=== PATIENT | female | born 1955 | race Hispanic/Latino ===

== ENCOUNTER 2022-07-15 20:26 | Observation (INO) | payer OTHER ==
[~2022-07-15] VITALS: Ht 152.4 cm; Wt 71.6 kg
[2022-07-15 20:53] LABS: BASOPHILS % (AUTO) 0.4 % (0.0-5.0); EOSINOPHILS % (AUTO) 1.3 % (0.0-8.0); HEMATOCRIT 39.5 % (36-48); LYMPHOCYTES % (AUTO) 44.9 % (21.0-51.0); MEAN CORPUSCULAR HEMOGLOBIN 28.3 pg (27.0-33.0); MEAN CORPUSCULAR HGB CONC 32.9 g/dL (32.0-36.0); MEAN CORPUSCULAR VOLUME 85.9 fL (79-99); MONOCYTES % (AUTO) 8.9 % (3.0-13.0); NEUTROPHILS % (AUTO) 44.2 % (40.0-77.0); PLATELET COUNT (AUTO) 222 K/uL (130-400); RED CELL DISTRIBUTION WIDTH 13.7 % (11.0-15.5); WHITE BLOOD COUNT (AUTO) 7.7 K/uL (4.8-10.8)
[2022-07-15] MEDS ORDERED: ASPIRIN 325MG TAB PO ONE (21:00)
[2022-07-15 21:08] LABS: ALBUMIN 3.6 g/dL (3.5-5.0); CREATININE 1.5 mg/dL (0.5-1.5); POTASSIUM 3.8 mmol/L (3.5-5.1); TOTAL PROTEIN, SERUM 7.4 g/dL (6.0-8.3)
[2022-07-15 21:20] LABS: B-TYPE NATRIURETIC PEPTIDE 8 pg/mL (0-100)
[2022-07-15] MEDS ORDERED: OMEP40CA21 PO (23:02)
[2022-07-15] MEDS ORDERED: NITR.4 SL (23:02)
[2022-07-15 23:10] LABS: APPEARANCE,URINE CLEAR (CLEAR); BILIRUBIN,URINE NEGATIVE (NEGATIVE); COLOR,URINE LIGHT-YELLOW (YELLOW); GLUCOSE, URINE (UA) >=1000 mg/dL (NEGATIVE); KETONES,URINE NEGATIVE (NEGATIVE); LEUKOCYTE ESTERASE ,URINE NEGATIVE Leu/uL (NEGATIVE); NITRATE,URINE NEGATIVE (NEGATIVE); OCCULT BLOOD,URINE NEGATIVE (NEGATIVE); PROTEIN,URINE NEGATIVE (NEGATIVE); UROBILINOGEN,URINE 0.2 mg/dL (0.2-1.0)
[2022-07-15 23:15] LABS: RBC,URINE 0-1 /HPF (0-1)
[2022-07-15 23:16] LABS: BACTERIA,URINE Rare /HPF (None Seen); SQUAMOUS EPITHELIAL CELL,UR Rare /HPF (0-2); WBC,URINE 0-1 /HPF (0-1)
[2022-07-16] MEDS ORDERED: LABETALOL 20MG SYG IV PRN (01:00)
[2022-07-16] MEDS ORDERED: CLONIDINE HCL 0.1 MG TABLET PO PRN (01:00)
[2022-07-16] MEDS ORDERED: ACETAMINOPHEN 650 MG SUPPOSITORY RC PRN (01:00)
[2022-07-16] MEDS ORDERED: ONDANSETRON 4MG INJ IVP PRN (01:00)
[2022-07-16] MEDS ORDERED: HYDRALAZINE 20MG/ML VIAL IV PRN (01:00)
[2022-07-16] MEDS: ACETAMINOPHEN 325 MG TAB PO PRN ×3 (03:10→16:01)
[2022-07-16] MEDS ORDERED: IOHEXOL 350 MG/ML 100ML INFUS..BTL IV ONE (04:31)
[2022-07-16 05:45] VITALS: BP 134/63
[2022-07-16] MEDS ORDERED: LEVO50TA11 PO (06:18)
[2022-07-16] MEDS ORDERED: SITA1TAB6 PO (06:18)
[2022-07-16] MEDS ORDERED: LATA2.5D14 OU (06:18)
[2022-07-16] MEDS ORDERED: FENO54TA6 PO (06:18)
[2022-07-16] MEDS ORDERED: CLAR-44 PO (06:18)
[2022-07-16] MEDS ORDERED: LOSA25TA41 PO (06:18)
[2022-07-16] MEDS ORDERED: OMEP20CA12 PO (06:18)
[2022-07-16] MEDS ORDERED: ROSU10TA28 PO (06:18)
[2022-07-16] MEDS ORDERED: ALEN70TA80 PO (06:18)
[2022-07-16] MEDS ORDERED: METR-172 PO (06:18)
[2022-07-16] MEDS: INSULIN HUMULIN R 100 UNIT/ML 3ML SQ SCH ×4 (06:41→21:12)
[2022-07-16 07:15] LABS: HEMATOCRIT 37.8 % (36-48); MEAN CORPUSCULAR HEMOGLOBIN 28.9 pg (27.0-33.0); MEAN CORPUSCULAR HGB CONC 33.3 g/dL (32.0-36.0); MEAN CORPUSCULAR VOLUME 86.7 fL (79-99); RED BLOOD CELL COUNT(AUTO) 4.36 MIL/uL (4.00-5.50); RED CELL DISTRIBUTION WIDTH 13.6 % (11.0-15.5); WHITE BLOOD COUNT (AUTO) 5.8 K/uL (4.8-10.8)
[2022-07-16 07:27] LABS: HEMOGLOBIN A1C 12.4 % (4.0-6.0)
[2022-07-16 07:42] LABS: CREATININE 1.1 mg/dL (0.5-1.5); POTASSIUM 3.8 mmol/L (3.5-5.1); THYROID STIMULATING HORMONE 0.86 uIU/mL (0.36-3.74)
[2022-07-16] MEDS: ASPIRIN 81MG CHEW TAB PO SCH (08:08)
[2022-07-16] MEDS: ENOXAPARIN SODIUM 30 MG/0.3 ML SQ SCH (08:08)
[2022-07-16 08:17] VITALS: BP 119/60
[2022-07-16] MEDS ORDERED: FAMOTIDINE 20MG TAB PO SCH (09:00)
[2022-07-16] MEDS ORDERED: KCL 20 MEQ ERTAB PO PRN (09:30)
[2022-07-16] MEDS ORDERED: POTASSIUM CHLORIDE 10% ELIXIR 20 MEQ/15 ML UDCUP PO PRN (09:30)
[2022-07-16] MEDS ORDERED: POTASSIUM CHLORIDE 20MEQ/100ML 100 ML IV PRN ×2 (09:30)
[2022-07-16] MEDS ORDERED: GLUCAGON 1MG KIT 1 MG ML IM PRN (09:30)
[2022-07-16] MEDS ORDERED: DEXTROSE 50%-WATER 50 ML DISP.SYRIN IV PRN (09:30)
[2022-07-16] MEDS: INSULIN GLARGINE 100 UNITS/ML 10 ML VIAL SQ SCH ×2 (10:16→21:14)
[2022-07-16] MEDS ORDERED: INSULIN HUMULIN R 100 UNIT/ML 3ML SQ SCH (11:30)
[2022-07-16] MEDS ORDERED: NITROGLYCERIN 1GM OINT 1 INCH/1GM TD SCH (12:00)
[2022-07-16 12:27] VITALS: BP 132/70
[2022-07-16] MEDS: PANTOPRAZOLE 40 MG/VIAL IVP SCH ×2 (14:13→21:04)
[2022-07-16] MEDS: SUCRALFATE 1 GM TABLET PO SCH ×2 (14:13→21:05)
[2022-07-16 15:54] VITALS: BP 115/65
[2022-07-16 20:00] VITALS: BP 101/52
[2022-07-16] MEDS: LOSARTAN 25 MG TABLET PO SCH (21:04)
[2022-07-16] MEDS: SIMVASTATIN 20 MG TABLET PO SCH (21:04)
[2022-07-16] MEDS: LATANOPROST 2.5 ML DROPS OU SCH (21:04)
[2022-07-16] MEDS: JANUMET PO SCH (21:20)
[2022-07-17] VITALS (7 sets, daily range): BP systolic 107–138; BP diastolic 47–71
[2022-07-17 04:05] LABS: MAGNESIUM 1.4 mg/dL (1.80-2.40); PHOSPHORUS 3.8 mg/dL (2.5-4.9)
[2022-07-17] MEDS: LEVOTHYROXINE 50 MCG TABLET PO SCH (06:30)
[2022-07-17] MEDS: INSULIN GLARGINE 100 UNITS/ML 10 ML VIAL SQ SCH ×2 (06:31→23:05)
[2022-07-17] MEDS: INSULIN HUMULIN R 100 UNIT/ML 3ML SQ SCH ×4 (06:32→23:04)
[2022-07-17] MEDS ORDERED: REGADENOSON 0.4 MG/5 ML PF SYG IVP SCH (07:30)
[2022-07-17] MEDS: ASPIRIN 81MG CHEW TAB PO SCH (08:29)
[2022-07-17] MEDS: SUCRALFATE 1 GM TABLET PO SCH ×2 (08:29→21:03)
[2022-07-17] MEDS: PANTOPRAZOLE 40 MG/VIAL IVP SCH ×2 (08:29→21:02)
[2022-07-17] MEDS: JANUMET PO SCH ×2 (08:30→21:08)
[2022-07-17] MEDS: ENOXAPARIN SODIUM 30 MG/0.3 ML SQ SCH (08:32)
[2022-07-17] MEDS: FENOFIBRATE 54 MG PO SCH (08:33)
[2022-07-17] MEDS: MAGNESIUM 2GM PREMIX 50ML 50 ML IV PRN (11:54)
[2022-07-17 12:39] LABS: INFLUENZA TYPE A NEGATIVE FOR TYPE A (NEG); INFLUENZA TYPE B NEGATIVE FOR TYPE B (NEG)
[2022-07-17] MEDS: SIMVASTATIN 20 MG TABLET PO SCH (21:03)
[2022-07-17] MEDS: LOSARTAN 25 MG TABLET PO SCH (21:03)
[2022-07-17] MEDS: LATANOPROST 2.5 ML DROPS OU SCH (21:06)
[2022-07-18 04:14] LABS: BASOPHILS % (AUTO) 0.4 % (0.0-5.0); EOSINOPHILS % (AUTO) 1.3 % (0.0-8.0); HEMATOCRIT 39.2 % (36-48); LYMPHOCYTES % (AUTO) 27.4 % (21.0-51.0); MEAN CORPUSCULAR HEMOGLOBIN 28.6 pg (27.0-33.0); MEAN CORPUSCULAR HGB CONC 32.9 g/dL (32.0-36.0); MEAN CORPUSCULAR VOLUME 86.9 fL (79-99); MONOCYTES % (AUTO) 7.5 % (3.0-13.0); NEUTROPHILS % (AUTO) 63.1 % (40.0-77.0); PLATELET COUNT (AUTO) 201 K/uL (130-400); RED BLOOD CELL COUNT(AUTO) 4.51 MIL/uL (4.00-5.50); RED CELL DISTRIBUTION WIDTH 14.1 % (11.0-15.5); WHITE BLOOD COUNT (AUTO) 10.1 K/uL (4.8-10.8)
[2022-07-18 04:18] VITALS: BP 106/46
[2022-07-18 04:23] LABS: MAGNESIUM 1.5 mg/dL (1.80-2.40); POTASSIUM 3.9 mmol/L (3.5-5.1)
[2022-07-18] MEDS: LEVOTHYROXINE 50 MCG TABLET PO SCH (05:00)
[2022-07-18] MEDS: MAGNESIUM 2GM PREMIX 50ML 50 ML IV PRN (05:00)
[2022-07-18] MEDS: INSULIN HUMULIN R 100 UNIT/ML 3ML SQ SCH ×2 (05:34→11:36)
[2022-07-18] MEDS: INSULIN GLARGINE 100 UNITS/ML 10 ML VIAL SQ SCH (06:16)
[2022-07-18 08:00] VITALS: BP 98/52
[2022-07-18] MEDS: PANTOPRAZOLE 40 MG/VIAL IVP SCH (08:32)
[2022-07-18] MEDS: SUCRALFATE 1 GM TABLET PO SCH (08:33)
[2022-07-18] MEDS: ASPIRIN 81MG CHEW TAB PO SCH (08:33)
[2022-07-18] MEDS: ENOXAPARIN SODIUM 30 MG/0.3 ML SQ SCH (08:34)
[2022-07-18] MEDS: FENOFIBRATE 54 MG PO SCH (08:35)
[2022-07-18] MEDS: JANUMET PO SCH (08:37)
[2022-07-18] MEDS ORDERED: ASPI-1005 PO (08:58)
[2022-07-18] MEDS ORDERED: INSU100I45 SQ (08:58)
[2022-07-18] MEDS ORDERED: SUCR1TAB PO (08:58)
[2022-07-18] MEDS ORDERED: METOPROLOL SUCCINATE 25 MG TAB.SR.24H PO SCH (09:00)
[2022-07-18 12:05] VITALS: BP 115/63
== END 2022-07-18 11:30 | disposition home or self-care (01) ==
LOC: EDH 20:26 → EDHIP 07-16 00:58 → 2DH 07-16 05:20
PROVIDERS: ADMIT Internal Medicine; ATTEND Internal Medicine
DX: R07.89 Other chest pain (principal); Z20.822 Contact with and (suspected) exposure to COVID-19; E11.65 Type 2 diabetes mellitus with hyperglycemia; G62.9 Polyneuropathy, unspecified; I10 Essential (primary) hypertension; E78.00 Pure hypercholesterolemia, unspecified; E87.1 Hypo-osmolality and hyponatremia; K21.9 Gastro-esophageal reflux disease without esophagitis; K29.70 Gastritis, unspecified, without bleeding; E03.9 Hypothyroidism, unspecified; E66.9 Obesity, unspecified; M94.0 Chondrocostal junction syndrome [Tietze]; Z59.7 Insufficient social insurance and welfare support; Z68.30 Body mass index [BMI] 30.0-30.9, adult; Z90.710 Acquired absence of both cervix and uterus; Z77.22 Contact with and (suspected) exposure to environmental tobacco smoke (acute) (chronic); Z79.899 Other long term (current) drug therapy; Z98.890 Other specified postprocedural states
CPT/HCPCS: 99285; 82550 ×3; 84484 ×4; 80053; 83880 ×2; 85025 ×2; 85378; 81001; 36415 ×4; 71045; 93005; 96376 ×3; 96372 ×3; 96375 ×2; 83036; 82150; 84443; 83874 ×2; 80061; 80048 ×2; 85027; 82948 ×10; 71270; 93306; 93356; 93970; 96365; 96366 ×2; 83735 ×3; 84100; 87804 ×2; 87635; 93017; 78452; J1815 ×9; G0378 ×50; J1650 ×3; C9113 ×6; Q9967; J3475 ×2; J2405; J2785; A9500 ×2; 96374

== ENCOUNTER → 2022-07-31 | Outpatient (CLI) | payer OTHER, MEDICARE ==
[~2022-07-31] MED LIST: ALEN70TA80 PO; ASPI-1005 PO; CLAR-44 PO; FENO54TA6 PO; INSU100I45 SQ; LATA2.5D14 OU; LEVO50TA11 PO; LOSA25TA41 PO; METR-172 PO; OMEP20CA12 PO; ROSU10TA28 PO; SITA1TAB6 PO; SUCR1TAB PO
== END | disposition home or self-care (01) ==
LOC: RAH 14:37
PROVIDERS: ATTEND Internal Medicine
DX: Z12.31 Encounter for screening mammogram for malignant neoplasm of breast (principal)
CPT/HCPCS: 77067

== ENCOUNTER → 2022-10-24 | Outpatient (CLI) | payer OTHER, MEDICARE | END | disposition home or self-care (01) | LOC: RAH 14:26 | PROVIDERS: ATTEND Internal Medicine | DX: R55 Syncope and collapse (principal) | CPT/HCPCS: 93880 ==

== ENCOUNTER 2023-09-24 10:41 | Emergency (ER) | payer OTHER, MEDICARE ==
[~2023-09-24] VITALS: Ht 149.9 cm; Wt 64.0 kg
[~2023-09-24 10:41] MED LIST changes: -ROSU10TA28 PO; +ROSU10TA72 PO
[2023-09-24 11:05] LABS: CREATININE 0.9 mg/dL (0.5-1.0); POTASSIUM 3.7 mmol/L (3.5-5.1)
[2023-09-24 11:13] LABS: ALBUMIN 3.8 g/dL (3.5-5.0); BILIRUBIN,TOTAL 0.5 mg/dL (0.2-1.0); MAGNESIUM 1.2 mg/dL (1.80-2.40); TOTAL PROTEIN, SERUM 7.6 g/dL (6.0-8.3)
[2023-09-24 11:32] LABS: BASOPHILS # (AUTO) 0.06 K/uL (0.00-0.20); BASOPHILS % (AUTO) 0.7 % (0.0-5.0); EOSINOPHILS # (AUTO) 0.16 K/uL (0.00-0.70); EOSINOPHILS % (AUTO) 1.8 % (0.0-8.0); HEMATOCRIT 39.1 % (36-48); IMMATURE GRANULOCYTE ABSOLUTE 0.03 K/uL (0-1); LYMPHOCYTES # (AUTO) 3.4 K/uL (1.0-4.8); LYMPHOCYTES % (AUTO) 39.3 % (21.0-51.0); MEAN CORPUSCULAR HEMOGLOBIN 29.2 pg (27.0-33.0); MEAN CORPUSCULAR VOLUME 88.5 fL (79-99); MONOCYTES # (AUTO) 0.5 K/uL (0.1-1.0); MONOCYTES % (AUTO) 6.2 % (3.0-13.0); NEUTROPHILS # (AUTO) 4.5 K/uL (1.8-7.7); NEUTROPHILS % (AUTO) 51.7 % (40.0-77.0); PLATELET COUNT (AUTO) 237 K/uL (130-400); RED BLOOD CELL COUNT(AUTO) 4.42 MIL/uL (4.00-5.50); WHITE BLOOD COUNT (AUTO) 8.8 K/uL (4.8-10.8)
[2023-09-24] MEDS: ASPIRIN 325MG TAB PO ONE (12:02)
[2023-09-24] MEDS: NITROGLYCERIN 1GM OINT 1 INCH/1GM TD ONE (12:02)
[2023-09-24] MEDS: MAGNESIUM 2GM PREMIX 50ML 50 ML IV ONE (12:03)
[2023-09-24 15:06] VITALS: BP 114/60; PULSE 69; RESP 12; O2SAT 99
== END 2023-09-24 15:11 | disposition home or self-care (01) ==
LOC: EDH 10:41
DX: R07.89 Other chest pain (principal); R09.89 Other specified symptoms and signs involving the circulatory and respiratory systems; I10 Essential (primary) hypertension; E11.9 Type 2 diabetes mellitus without complications; E78.00 Pure hypercholesterolemia, unspecified; K21.9 Gastro-esophageal reflux disease without esophagitis; M19.90 Unspecified osteoarthritis, unspecified site; Z79.82 Long term (current) use of aspirin; Z79.84 Long term (current) use of oral hypoglycemic drugs; Z88.0 Allergy status to penicillin; Z88.5 Allergy status to narcotic agent; Z88.8 Allergy status to other drugs, medicaments and biological substances
CPT/HCPCS: 99285; 96365; 71045; 96366; 83735; 84484 ×2; 80053; 85025; 36415; 93005; J3475

== ENCOUNTER 2023-12-09 20:34 | Emergency (ER) | payer OTHER, MEDICARE ==
[~2023-12-09] VITALS: Ht 152.4 cm; Wt 66.2 kg
[2023-12-09 21:01] LABS: BASOPHILS # (AUTO) 0.03 K/uL (0.00-0.20); BASOPHILS % (AUTO) 0.4 % (0.0-5.0); EOSINOPHILS # (AUTO) 0.14 K/uL (0.00-0.70); EOSINOPHILS % (AUTO) 1.7 % (0.0-8.0); HEMATOCRIT 36.1 % (36-48); IMMATURE GRANULOCYTE ABSOLUTE 0.02 K/uL (0-1); MEAN CORPUSCULAR HEMOGLOBIN 29.4 pg (27.0-33.0); MEAN CORPUSCULAR VOLUME 89.1 fL (79-99); MONOCYTES # (AUTO) 0.5 K/uL (0.1-1.0); MONOCYTES % (AUTO) 6.2 % (3.0-13.0); NEUTROPHILS # (AUTO) 3.6 K/uL (1.8-7.7); NEUTROPHILS % (AUTO) 43.5 % (40.0-77.0); PLATELET COUNT (AUTO) 253 K/uL (130-400); RED BLOOD CELL COUNT(AUTO) 4.05 MIL/uL (4.00-5.50); RED CELL DISTRIBUTION WIDTH 13.7 % (11.0-15.5); WHITE BLOOD COUNT (AUTO) 8.3 K/uL (4.8-10.8)
[2023-12-09 21:11] LABS: CREATININE 1.2 mg/dL (0.5-1.0); POTASSIUM 3.7 mmol/L (3.5-5.1)
[2023-12-09 21:16] LABS: ALBUMIN 3.7 g/dL (3.5-5.0); BILIRUBIN,TOTAL 0.4 mg/dL (0.2-1.0); TOTAL PROTEIN, SERUM 7.2 g/dL (6.0-8.3)
[2023-12-09 22:25] LABS: APPEARANCE,URINE CLEAR (CLEAR); BILIRUBIN,URINE NEGATIVE (NEGATIVE); COLOR,URINE LIGHT-YELLOW (YELLOW); GLUCOSE, URINE (UA) NEGATIVE (NEGATIVE); KETONES,URINE NEGATIVE (NEGATIVE); LEUKOCYTE ESTERASE ,URINE 75 Leu/uL (NEGATIVE); NITRATE,URINE NEGATIVE (NEGATIVE); OCCULT BLOOD,URINE NEGATIVE (NEGATIVE); PROTEIN,URINE NEGATIVE (NEGATIVE); UROBILINOGEN,URINE 0.2 mg/dL (0.2-1.0)
[2023-12-09 22:27] LABS: ADD UA MICROSCOPIC YES
[2023-12-09 22:30] LABS: RBC,URINE 0-1 /HPF (0-1); SQUAMOUS EPITHELIAL CELL,UR RARE /HPF (0-2)
[2023-12-09] MEDS: atorVAStatin 40 MG TABLET PO ONE (22:58)
[2023-12-09] MEDS: ASPIRIN 81MG CHEW TAB PO ONE (22:58)
[2023-12-10 00:37] VITALS: BP 127/59; PULSE 71; RESP 20; TEMP 98.1; O2SAT 99
== END 2023-12-10 00:39 | disposition home or self-care (01) ==
LOC: EDH 20:34
DX: R07.89 Other chest pain (principal); E11.9 Type 2 diabetes mellitus without complications; E66.9 Obesity, unspecified; E78.00 Pure hypercholesterolemia, unspecified; I10 Essential (primary) hypertension; K21.9 Gastro-esophageal reflux disease without esophagitis; M19.90 Unspecified osteoarthritis, unspecified site; Z79.82 Long term (current) use of aspirin; Z79.84 Long term (current) use of oral hypoglycemic drugs; Z79.890 Hormone replacement therapy; Z88.0 Allergy status to penicillin; Z88.5 Allergy status to narcotic agent; Z98.51 Tubal ligation status
CPT/HCPCS: 36415; 71045; 80053; 81001; 83735; 83880; 84484; 85025; 87086; 93005

== ENCOUNTER 2023-12-29 15:17 | Emergency (ER) | payer OTHER, MEDICARE ==
[~2023-12-29] VITALS: Ht 149.9 cm; Wt 65.3 kg
[2023-12-29] MEDS: ASPIRIN 325MG TAB PO ONE (15:39)
[2023-12-29] MEDS: NITROGLYCERIN 0.4 MG SL TAB SL PRN (15:39)
[2023-12-29 15:44] LABS: BASOPHILS # (AUTO) 0.05 K/uL (0.00-0.20); BASOPHILS % (AUTO) 0.4 % (0.0-5.0); EOSINOPHILS # (AUTO) 0.14 K/uL (0.00-0.70); EOSINOPHILS % (AUTO) 1.2 % (0.0-8.0); HEMATOCRIT 37.3 % (36-48); IMMATURE GRANULOCYTE ABSOLUTE 0.03 K/uL (0-1); LYMPHOCYTES # (AUTO) 4.8 K/uL (1.0-4.8); LYMPHOCYTES % (AUTO) 41.9 % (21.0-51.0); MEAN CORPUSCULAR HGB CONC 33.2 g/dL (32.0-36.0); MEAN CORPUSCULAR VOLUME 90.1 fL (79-99); MONOCYTES # (AUTO) 0.7 K/uL (0.1-1.0); MONOCYTES % (AUTO) 6.1 % (3.0-13.0); NEUTROPHILS # (AUTO) 5.8 K/uL (1.8-7.7); NEUTROPHILS % (AUTO) 50.1 % (40.0-77.0); PLATELET COUNT (AUTO) 277 K/uL (130-400); RED BLOOD CELL COUNT(AUTO) 4.14 MIL/uL (4.00-5.50); RED CELL DISTRIBUTION WIDTH 13.6 % (11.0-15.5); WHITE BLOOD COUNT (AUTO) 11.5 K/uL (4.8-10.8)
[2023-12-29 15:47] LABS: APPEARANCE,URINE CLEAR (CLEAR); BILIRUBIN,URINE NEGATIVE (NEGATIVE); COLOR,URINE YELLOW (YELLOW); GLUCOSE, URINE (UA) NEGATIVE (NEGATIVE); KETONES,URINE 5 mg/dL (NEGATIVE); LEUKOCYTE ESTERASE ,URINE 75 Leu/uL (NEGATIVE); NITRATE,URINE NEGATIVE (NEGATIVE); OCCULT BLOOD,URINE NEGATIVE (NEGATIVE); PROTEIN,URINE 20 mg/dL (NEGATIVE)
[2023-12-29 15:49] LABS: ADD UA MICROSCOPIC YES
[2023-12-29 15:51] LABS: BACTERIA,URINE RARE /HPF (None Seen); MUCUS,URINE RARE LPF (None Seen); NON-SQUAMOUS EPITHELIAL CELL <1 /HPF (0-2); OTHER CASTS, URINE 1 /LPF (None Seen); RBC,URINE 0-1 /HPF (0-1); SQUAMOUS EPITHELIAL CELL,UR RARE /HPF (0-2)
[2023-12-29 15:51] LABS: CREATININE 1.2 mg/dL (0.5-1.0)
[2023-12-29] MEDS: acetaMINOPHEN 500 MG TABLET PO ONE (16:02)
[2023-12-29 16:07] LABS: B-TYPE NATRIURETIC PEPTIDE 19 pg/mL (0-100)
[2023-12-29] MEDS: ondanSETRON 4MG INJ IVP ONE (16:39)
[2023-12-29] MEDS: Solu-medROL 125MG VIAL IVP ONE (17:02)
[2023-12-29] MEDS: ketOROlac 30MG VIAL (30MG/ML) IVP ONE (17:02)
[2023-12-29] MEDS: MAGNESIUM 2GM PREMIX 50ML 50 ML IV ONE (18:22)
[2023-12-29 18:36] VITALS: BP 117/62; PULSE 74; RESP 20; TEMP 98.3; O2SAT 99
[2023-12-29] MEDS ORDERED: METH4TAB3 PO (18:45)
[2023-12-29] MEDS ORDERED: MAGN300C PO (18:45)
== END 2023-12-29 18:50 | disposition home or self-care (01) ==
LOC: EDH 15:17
DX: R07.89 Other chest pain (principal); E83.42 Hypomagnesemia; K29.00 Acute gastritis without bleeding; E11.9 Type 2 diabetes mellitus without complications; E78.00 Pure hypercholesterolemia, unspecified; I10 Essential (primary) hypertension; K21.9 Gastro-esophageal reflux disease without esophagitis; M19.90 Unspecified osteoarthritis, unspecified site; Z79.82 Long term (current) use of aspirin; Z79.84 Long term (current) use of oral hypoglycemic drugs; Z79.890 Hormone replacement therapy; Z88.0 Allergy status to penicillin; Z88.5 Allergy status to narcotic agent; Z98.51 Tubal ligation status
CPT/HCPCS: 99285; 96374; 96375; 71045; 82550; 83735; 84484 ×2; 80048; 83880; 85025; 87086; 81001; 36415; 93005; J3475; J2919; J2405; J1885

== ENCOUNTER 2024-01-15 14:02 | Emergency (ER) | payer OTHER, MEDICARE ==
[~2024-01-15] VITALS: Ht 149.9 cm; Wt 63.5 kg
[~2024-01-15 14:02] MED LIST changes: +MAGN300C PO; +METH4TAB3 PO
[2024-01-15 14:33] LABS: BASOPHILS # (AUTO) 0.04 K/uL (0.00-0.20); BASOPHILS % (AUTO) 0.4 % (0.0-5.0); EOSINOPHILS # (AUTO) 0.14 K/uL (0.00-0.70); EOSINOPHILS % (AUTO) 1.5 % (0.0-8.0); HEMATOCRIT 36.6 % (36-48); IMMATURE GRANULOCYTE ABSOLUTE 0.03 K/uL (0-1); LYMPHOCYTES # (AUTO) 3.7 K/uL (1.0-4.8); MEAN CORPUSCULAR HEMOGLOBIN 30.4 pg (27.0-33.0); MEAN CORPUSCULAR HGB CONC 33.3 g/dL (32.0-36.0); MEAN CORPUSCULAR VOLUME 91.3 fL (79-99); MONOCYTES # (AUTO) 0.6 K/uL (0.1-1.0); MONOCYTES % (AUTO) 7.1 % (3.0-13.0); NEUTROPHILS # (AUTO) 4.5 K/uL (1.8-7.7); NEUTROPHILS % (AUTO) 49.7 % (40.0-77.0); PLATELET COUNT (AUTO) 203 K/uL (130-400); RED BLOOD CELL COUNT(AUTO) 4.01 MIL/uL (4.00-5.50); WHITE BLOOD COUNT (AUTO) 9.1 K/uL (4.8-10.8)
[2024-01-15 14:39] LABS: CREATININE 1.3 mg/dL (0.5-1.0); POTASSIUM 3.8 mmol/L (3.5-5.1)
[2024-01-15 14:53] LABS: B-TYPE NATRIURETIC PEPTIDE 62 pg/mL (0-100)
[2024-01-15 16:04] LABS: APPEARANCE,URINE CLOUDY (CLEAR); BILIRUBIN,URINE NEGATIVE (NEGATIVE); COLOR,URINE LIGHT-YELLOW (YELLOW); GLUCOSE, URINE (UA) 50 mg/dL (NEGATIVE); KETONES,URINE NEGATIVE (NEGATIVE); LEUKOCYTE ESTERASE ,URINE 500 Leu/uL (NEGATIVE); NITRATE,URINE NEGATIVE (NEGATIVE); OCCULT BLOOD,URINE NEGATIVE (NEGATIVE); PH,URINE 7.5 (5.0-8.0); PROTEIN,URINE NEGATIVE (NEGATIVE); UROBILINOGEN,URINE 0.2 mg/dL (0.2-1.0)
[2024-01-15 16:11] LABS: ADD UA MICROSCOPIC YES
[2024-01-15 16:13] LABS: BACTERIA,URINE RARE /HPF (None Seen); MUCUS,URINE RARE LPF (None Seen); NON-SQUAMOUS EPITHELIAL CELL 2 /HPF (0-2); SQUAMOUS EPITHELIAL CELL,UR MANY /HPF (0-2)
[2024-01-15 18:19] VITALS: BP 129/57; PULSE 77; RESP 25; TEMP 98.2; O2SAT 99
[2024-01-15] MEDS: dexaMETHasone SOD PHOSPHATE 4 MG/ML 1ML VIAL IM ONE (19:08)
[2024-01-15] MEDS: ketOROlac 60 MG VIAL (30MG/ML) IM ONE (19:09)
== END 2024-01-15 19:20 | disposition home or self-care (01) ==
LOC: EDH 14:02
DX: R07.89 Other chest pain (principal); E86.0 Dehydration; E11.9 Type 2 diabetes mellitus without complications; E78.00 Pure hypercholesterolemia, unspecified; K21.9 Gastro-esophageal reflux disease without esophagitis; Z88.0 Allergy status to penicillin; Z88.5 Allergy status to narcotic agent; Z88.8 Allergy status to other drugs, medicaments and biological substances; Z79.84 Long term (current) use of oral hypoglycemic drugs; Z79.82 Long term (current) use of aspirin; Z79.4 Long term (current) use of insulin; Z90.49 Acquired absence of other specified parts of digestive tract; Z98.51 Tubal ligation status; Z98.890 Other specified postprocedural states
CPT/HCPCS: 99285; 71045; 82550; 84484 ×2; 80048; 83880; 85025; 87086; 81001; 36415; 96372 ×2; 93005; J1100; J1885

== ENCOUNTER → 2024-08-09 | Outpatient (CLI) | payer OTHER, MEDICARE ==
--- NOTE | 2024-08-10 09:02 | HMCIMG ---
Exam Type: MAMMO SCREENING BILATERAL Clinical Information: ROUTINE SCREENING Comparison: July 31, 2022 Technique: Mammogram with CAD was performed with CC and MLO projections. CAD shows no worrisome regions. FINDINGS: The breasts are heterogeneously dense, which may obscure small masses. No dominant mass or suspicious microcalcification identified. There is no nipple retraction or skin thickening. Benign-appearing calcifications are seen. CAD shows no worrisome regions. IMPRESSION: 1. No mammographic signs of malignancy. 2. Routine follow-up recommended. CATEGORY 2: BENIGN FINDINGS Note: A negative x-ray should not delay biopsy if a dominant or clinically suspicious mass is present, since 8-10% of cancers are not identified by mammography. Dense breasts may obscure an underlying neoplasm.
== END | disposition home or self-care (01) ==
LOC: RAH 13:21
PROVIDERS: ATTEND Internal Medicine
DX: Z12.31 Encounter for screening mammogram for malignant neoplasm of breast (principal); R92.333 Mammographic heterogeneous density, bilateral breasts; R92.1 Mammographic calcification found on diagnostic imaging of breast
CPT/HCPCS: 77067

== ENCOUNTER 2024-12-05 11:37 | Day surgery (SDC) | payer OTHER, MEDICARE ==
[2024-12-02 14:37] LABS: IMMATURE GRANULOCYTE ABSOLUTE 0.02 K/uL (0-1); NUCLEATED RED BLOOD CELLS 0.0 % (0.0-0.19); PLATELET COUNT (AUTO) 246 K/uL (130-400); RED BLOOD CELL COUNT(AUTO) 3.97 MIL/uL (4.00-5.50); RED CELL DISTRIBUTION WIDTH 14.0 % (11.0-15.5); WHITE BLOOD COUNT (AUTO) 7.8 K/uL (4.8-10.8)
[2024-12-02 14:48] LABS: INR 1.07 (0.85-1.15)
[2024-12-02 14:50] LABS: CREATININE 0.9 mg/dL (0.5-1.0); GLOMERULAR FILTR. RATE CALC 70.0 mL/min (>90); GLUCOSE,RANDOM 106.0 mg/dL (70-105); SODIUM SERUM 139.0 mmol/L (136-145); UREA NITROGEN, BLOOD 15.0 mg/dL (7-18)
[2024-12-02 15:15] VITALS: BP 124/64; PULSE 80; RESP 18; TEMP 97.5
--- NOTE | 2024-12-02 16:14 | HMCIMG ---
CHEST 1VW REASON: pre-op COMPARISON: Prior study from 10/15/2024 is available. FINDINGS: Single view of the chest was obtained. Lungs are clear. Heart size is normal. There is no pulmonary vascular congestion. Mediastinum and bony thorax appear unremarkable. IMPRESSION: 1. Unchanged from prior study. No evidence of airspace consolidation or pulmonary venous congestion..
--- NOTE | 2024-12-02 20:03 | EKG ---
[facility] Test Date: 2024-12-02 Test Time: 14:16:42 Pat Name: ZAMZAM JEFFERY Department: [facility] Room: [facility] Gender: F Tag Clerk: [id number] : 1955 Requested By: ANANTH NG Order Number: [id number] Reading MD: Katherine Frank Measurements Intervals Orgas Rate: 74 P: 10 RI: 125 QRS: 21 QRSD: 84 T: -2 QT: 348 QTc: 387 Interpretive Statements Sinus rhythm Compared to ECG 10/15/2024 15:35:13 No significant changes Electronically Signed On 12-05-2024 12:39:02 CDT by Katherine Frank Please click the below link to view image of tracing.
[2024-12-05] VITALS (8 sets, daily range): BP systolic 122–137; BP diastolic 48–72; PULSE 80–102; RESP 13–17; TEMP 97.5–97.7
[~2024-12-05] VITALS: Ht 149.9 cm; Wt 62.4 kg
[~2024-12-05 11:37] MED LIST changes: -ALEN70TA80 PO; -ASPI-1005 PO; +ASPI-1443 PO; -CLAR-44 PO; -INSU100I45 SQ; +INSU3INS3 SQ; -LATA2.5D14 OU; +LATA2.5D7 OU; -LOSA25TA41 PO; +MAGN250T10 PO; -MAGN300C PO; +METF-444 PO; -METH4TAB3 PO; +METO-391 PO; -METR-172 PO; +OMEG100014 PO; -OMEP20CA12 PO; +OMEP40CA21 PO; -SITA1TAB6 PO; -SUCR1TAB PO; +SUCR1TAB2 PO; +TIRZ5PEN SQ
[2024-12-05] MEDS ORDERED: IOHEXOL 350 MG/ML 100ML INFUS..BTL IV ONE (14:13)
[2024-12-05] MEDS ORDERED: NITROGLYCERIN 50MG VIAL ONE (14:13)
[2024-12-05] MEDS ORDERED: LIDOCAINE HCL 400MG/20ML VIAL ONE (14:13)
[2024-12-05] MEDS ORDERED: HEParin-NS 1,000 UNIT/500 ML 1,000 ML IV ONE (14:13)
[2024-12-05] MEDS ORDERED: MIDAZOLAM HCL 1 MG/ML 2ML VIAL ONE (14:19)
--- NOTE | 2024-12-05 14:52 | PRN ---
Left Heart Cath-[facility] PROCEDURE: 1. Right common femoral arterial sheath placement. 2. Selective coronary angiogram. 3. Left heart catheterization 4. Left ventriculogram INDICATIONS: Unstable angina DESCRIPTION OF PROCEDURE: The patient was brought to the catheterization suite and prepped and draped in sterile fashion. An IV was started, if not already in place and both groins were exposed for arterial access. 1% lidocaine was used for local anesthesia and then a micropuncture kit was used to gain access and once free-flowing blood was seen, modified Seldinger technique was utilized to place a 6 [place] sheath into the right common femoral artery. Next, preformed JL4 and JR4 Catheters were then used to selectively engage the [place] coronary vessels and multiple hand contrast injections were performed in different views to define the coronary anatomy. Next, a JR4 catheter was used to cross the aortic valve. Pressure measurements were obtained in the left ventriculogram was in the 30 NUÑEZ position. Next, pullback method was performed. At the end of the case, sheath was pulled. No complications occurred. FINDINGS: The left main artery bifurcates in the LAD and left circumflex and is free of any significant stenosis. The left anterior descending artery and its diagonal branch system are free of any stenosis. The left circumflex artery is a nondominant system rather sizable obtuse marginal branches which are tortuous distally but no stenosis present The right coronary artery is a dominant system giving rise to the RPDA and RPL. There was no stenosis noted in the system. Ejection fraction is only seen in the 30 CROATIAN view secondary to camera issues but EF was noted to be normal in these views. LVEDP was normal There was no evidence of aortic stenosis or mitral regurgitation RECOMMENDATIONS: Continue with current medical regimen Follow up in office in 2 weeks No driving motor vehicles for 24 hours No heavy lifting 5 lb or greater for 3 days ANANTH NG MD Dec 05, 2024 14:52
[2024-12-05] MEDS ORDERED: GLUCAGON 1MG KIT 1 MG ML IM PRN (15:00)
[2024-12-05] MEDS ORDERED: DEXTROSE 50%-WATER 50 ML DISP.SYRIN IV PRN (15:00)
[2024-12-05] MEDS ORDERED: 0.9%NACL 1000ML 1,000 ML IV SCH (15:00)
--- NOTE | 2024-12-05 17:55 | NUR ---
BOTH PT AND SPOUSE GIVEN VERBAL AND WRITTEN DISCHARGE INSTRUCTIONS. IV REMOVED SITE ASYMPTOMATIC. PT TAKEN OUT VIA WHEELCHAIR SPOUSE DRIVING.
== END 2024-12-05 18:15 | disposition home or self-care (01) ==
LOC: DAH 11:37
PROVIDERS: ATTEND Internal Medicine Cardiovascular Disease
DX: R94.39 Abnormal result of other cardiovascular function study (principal); I25.110 Atherosclerotic heart disease of native coronary artery with unstable angina pectoris; E11.9 Type 2 diabetes mellitus without complications; I10 Essential (primary) hypertension; E78.5 Hyperlipidemia, unspecified; K21.9 Gastro-esophageal reflux disease without esophagitis; I42.9 Cardiomyopathy, unspecified; E03.9 Hypothyroidism, unspecified; I47.10 Supraventricular tachycardia, unspecified; M81.0 Age-related osteoporosis without current pathological fracture; Z98.51 Tubal ligation status; Z98.891 History of uterine scar from previous surgery; Z98.890 Other specified postprocedural states; Z88.0 Allergy status to penicillin; Z88.5 Allergy status to narcotic agent; Z79.82 Long term (current) use of aspirin; Z79.899 Other long term (current) drug therapy; Z79.01 Long term (current) use of anticoagulants; Z79.890 Hormone replacement therapy; Z79.4 Long term (current) use of insulin; Z98.49 Cataract extraction status, unspecified eye; Z88.8 Allergy status to other drugs, medicaments and biological substances
CPT/HCPCS: 80048; 83880; 85025; 85610; 85730; 36415; 71045; 93005; 93458; 99156; 99157; 82948 ×2; J1815; C1894 ×3; Q9965; J1200; J3010; J3490 ×2; J2250; J1644; A4215; A4222; A4221; A4663; A4216; A4606; A4223 ×3; Q9967